=== PATIENT | female | born 1955 | race Caucasian/White ===

== ENCOUNTER 2017-01-30 11:56 | Observation (INO) | payer OTHER ==
[~2017-01-30] VITALS: Ht 160 cm; Wt 53.5 kg
[2017-01-30] MEDS ORDERED: SODIUM CHLORIDE 0.9% 1,000 ML IVB ONE (14:02)
[2017-01-30] MEDS ORDERED: MORPHINE SULF INJ 2 MG/ML SYRINGE 1ML IV ONE (15:30)
[2017-01-30] MEDS ORDERED: ONDANSETRON HCL 4 MG/2 ML VIAL IV ONE (15:30)
[2017-01-30 15:58] LABS: Basophils # (auto) 0 uL; Basophils % (auto) 0.1 % (0.0-2.0); Eosinophils # (auto) 0.1 uL; Eosinophils % (auto) 0.7 % (0.0-7.0); Hematocrit 33.3 % (36.0-46.0); Hemoglobin 10.8 g/dL (12.2-16.2); Lymphocytes # (auto) 2.7 uL; Lymphocytes % (auto) 22.9 % (10.0-50.0); Mean Corpuscular Hemoglobin 33.3 pg (28.0-32.0); Mean Corpuscular Hgb Conc. 32.5 g/dL (32.0-36.0); Mean Corpuscular Volume 102.4 fL (80.0-100.0); Mean Platelet Volume 8.4 fL (6.9-10.8); Monocytes # (auto) 1.3 uL; Monocytes % (auto) 10.6 % (0.0-12.0); Neutrophils # (auto) 7.8 uL; Neutrophils % (auto) 65.7 % (37.0-80.0); Platelet Count (auto) 250 10^3/uL (140-450); White Blood Cell 11.9 10^3/uL (4.4-10.8)
[2017-01-30 16:01] LABS: Red Cell Distribution Width 27.3 % (11.8-14.3)
[2017-01-30 16:16] LABS: Albumin 3.1 g/dL (3.4-5.0); BUN/Creatinine Ratio 30.4; Bilirubin, Total 0.4 mg/dL (0.2-1.0); Calcium 8.3 mg/dL (8.5-10.1); Potassium 3.4 mmol/L (3.5-5.1); Total Protein 6.2 g/dL (6.4-8.2)
[2017-01-30 17:02] VITALS: BP 133/88
[2017-01-30 17:05] LABS: Urine Bilirubin Negative (Negative); Urine Blood 1+ /uL (Negative); Urine Color Yellow (Yellow); Urine Glucose Normal (Normal); Urine Hyaline Cast MOD /lpf (0 - 2); Urine Ketone Negative (Negative); Urine Mucus FEW (None Seen); Urine Nitrite POSITIVE (Negative); Urine RBC 4 /hpf (0 - 4); Urine Squamous Epithelial Cell FEW /hpf (<5); Urine Urobilinogen Normal (Negative)
[2017-01-30] MEDS ORDERED: HYDROcodone-ACET 5/325MG TAB PO PRN (17:15)
[2017-01-30] MEDS ORDERED: TEMAZEPAM 15 MG CAP PO PRN (17:15)
[2017-01-30] MEDS ORDERED: cefTRIAXone 1GM/50ML D5W 50 ML IV ONE (17:15)
[2017-01-30] MEDS ORDERED: MORPHINE SULF INJ 2 MG/ML SYRINGE 1ML IV PRN ×2 (17:15)
[2017-01-30] MEDS ORDERED: LORazepam 0.5 MG TAB PO PRN (17:15)
[2017-01-30] MEDS ORDERED: FAMOTIDINE (10MG/ML) 2ML VL IV SCH (17:15)
[2017-01-30] MEDS ORDERED: PROMETHAZINE HCL 25 MG/ML 1ML IV PRN (17:15)
[2017-01-30] MEDS ORDERED: NITROGLYCERIN 0.4 MG SL TAB SL PRN (17:15)
[2017-01-30] MEDS ORDERED: SOD CHL 0.9%/ KCL 20MEQ 1,000 ML IV SCH (17:15)
[2017-01-30] MEDS ORDERED: ACETAMINOPHEN 500 MG TAB PO PRN (17:15)
[2017-01-30 17:50] LABS: Magnesium 2.2 mg/dL (1.6-2.6)
[2017-01-30] MEDS ORDERED: metroNIDAZOLE 500MG/100ML 100 ML IV SCH (18:00)
[2017-01-30 18:38] LABS: Anisocytosis Moderate; Platelet Estimate Adequate
[2017-01-30 18:39] LABS: Macrocytosis Slight; Tear Drop Cells FEW
[2017-01-31 00:22] LABS: INR 1.05 (0.9-1.15); Partial Thromboplastin Time 23.9 sec (22.64-33.71); Prothrombin Time 11.4 sec (9.37-12.3)
[2017-01-31] MEDS ORDERED: cefTRIAXone 1GM/50ML D5W 50 ML IV SCH (09:00)
[2017-01-31] MEDS ORDERED: ENOXAPARIN SOD 40 MG/0.4 ML SYRINGE SC SCH (10:00)
== END 2017-01-30 18:45 | disposition home or self-care (01) | DRG 251 ==
LOC: ER 11:56 → UNDOADMIN 11:57 → TELE 11:57 → OVERFLOW 14:05 → ER 18:30
PROVIDERS: ADMIT Family Medicine; ATTEND Family Medicine
DX: R10.84 Generalized abdominal pain (principal); C78.7 Secondary malignant neoplasm of liver and intrahepatic bile duct; C18.9 Malignant neoplasm of colon, unspecified; C78.6 Secondary malignant neoplasm of retroperitoneum and peritoneum
CPT/HCPCS: 36415; 71010; 74176; 80053; 81001; 82150; 82378; 83690; 83735; 85025; 85610; 85730; 96361; 96374; 96375; 99285; G0378; J2270; J2405

== ENCOUNTER 2017-03-14 21:04 | Inpatient (IN) | payer OTHER ==
[~2017-03-14] VITALS: Ht 160 cm; Wt 52.5 kg
[2017-03-14] MEDS ORDERED: SODIUM CHLORIDE 0.9% 500 ML IVB ONE (21:21)
[2017-03-14] MEDS ORDERED: PANTOPRAZOLE 40 MG/10 ML VIAL IV STA (21:21)
[2017-03-14] MEDS ORDERED: HYDROmorphone HCL 2 MG/ML VL IV ONE (21:30)
[2017-03-14] MEDS ORDERED: ONDANSETRON HCL 4 MG/2 ML VIAL IV ONE (21:30)
[2017-03-14 22:05] LABS: Albumin 2.6 g/dL (3.4-5.0); Magnesium 3.1 mg/dL (1.6-2.6); Potassium 3.9 mmol/L (3.5-5.1)
[2017-03-14 22:07] LABS: BUN/Creatinine Ratio 20.1
[2017-03-14 22:08] LABS: Total Protein 6.6 g/dL (6.4-8.2)
[2017-03-14 22:45] LABS: Basophils # (auto) 0 uL; Eosinophils # (auto) 0 uL; Hemoglobin 10.5 g/dL (12.2-16.2); Lymphocytes # (auto) 0.3 uL; Monocytes # (auto) 0.2 uL; Monocytes % (auto) 10.1 % (0.0-12.0); Neutrophils # (auto) 1.4 uL
[2017-03-14 22:49] LABS: Basophils % (auto) 0.6 % (0.0-2.0); Eosinophils % (auto) 1.2 % (0.0-7.0); Hematocrit 33.7 % (36.0-46.0); Lymphocytes % (auto) 15.3 % (10.0-50.0); Mean Corpuscular Hemoglobin 28.6 pg (28.0-32.0); Mean Corpuscular Hgb Conc. 31.2 g/dL (32.0-36.0); Mean Corpuscular Volume 91.8 fL (80.0-100.0); Mean Platelet Volume 8.2 fL (6.9-10.8); Neutrophils % (auto) 72.8 % (37.0-80.0); Nucleated Red Blood Cells % 1.3 %; Platelet Count (auto) 481 10^3/uL (140-450)
[2017-03-14 22:51] LABS: INR 1.25 (0.9-1.15); Partial Thromboplastin Time 35.8 sec (22.64-33.71); Prothrombin Time 13.7 sec (9.37-12.3)
[2017-03-14 23:06] LABS: Red Cell Distribution Width 25.1 % (11.8-14.3)
[2017-03-14 23:27] LABS: Platelet Estimate Increased
[2017-03-14 23:28] LABS: Anisocytosis Moderate
[2017-03-14 23:29] LABS: Ovalocytes FEW
[2017-03-14] MEDS ORDERED: SODIUM CHLORIDE 0.9% 1,000 ML IV ONE (23:45)
[2017-03-15] MEDS ORDERED: HYDROmorphone HCL 2 MG/ML VL IV ONE (04:45)
[2017-03-15] MEDS ORDERED: SODIUM CHLORIDE 0.9% 1,000 ML IV ONE ×2 (04:45→22:15)
[2017-03-15] MEDS ORDERED: HYDROcodone-ACET 5/325MG TAB PO PRN (05:45)
[2017-03-15] MEDS ORDERED: MORPHINE SULF INJ 2 MG/ML SYRINGE 1ML IV PRN (05:45)
[2017-03-15] MEDS ORDERED: TEMAZEPAM 15 MG CAP PO PRN (05:45)
[2017-03-15] MEDS ORDERED: ACETAMINOPHEN 325 MG TAB PO PRN (05:45)
[2017-03-15] MEDS ORDERED: NITROGLYCERIN 0.4 MG SL TAB SL PRN (05:45)
[2017-03-15] MEDS ORDERED: ONDANSETRON HCL 4 MG/2 ML VIAL IV PRN (05:45)
[2017-03-15] MEDS: SODIUM CHLORIDE 0.9% 1,000 ML IV SCH ×3 (08:00→12:00)
[2017-03-15] MEDS: PANTOPRAZOLE 40 MG/10 ML VIAL IV SCH (10:10)
[2017-03-15] MEDS: HYDROmorphone HCL 2 MG/ML VL IV PRN ×2 (10:11→14:20)
[2017-03-15 10:46] VITALS: BP 81/53
[2017-03-15] MEDS: metroNIDAZOLE 500 MG TAB PO SCH ×2 (12:26→17:35)
[2017-03-15 15:38] VITALS: BP 82/51
[2017-03-15 17:16] VITALS: BP 82/54
[2017-03-15 22:00] VITALS: BP 75/43
[2017-03-16] MEDS: SODIUM CHLORIDE 0.9% 1,000 ML IV SCH ×2 (04:36→08:54)
[2017-03-16 05:00] VITALS: BP 71/45
[2017-03-16 05:23] LABS: Basophils # (auto) 0 uL; Eosinophils # (auto) 0 uL; Hemoglobin 9.4 g/dL (12.2-16.2); Lymphocytes # (auto) 0.2 uL; Monocytes # (auto) 0.1 uL
[2017-03-16 05:27] LABS: Eosinophils % (auto) 4.3 % (0.0-7.0); Hematocrit 30.1 % (36.0-46.0); Lymphocytes % (auto) 38.4 % (10.0-50.0); Mean Corpuscular Hemoglobin 29.2 pg (28.0-32.0); Mean Corpuscular Hgb Conc. 31.3 g/dL (32.0-36.0); Mean Corpuscular Volume 93.2 fL (80.0-100.0); Mean Platelet Volume 8.5 fL (6.9-10.8); Neutrophils # (auto) 0.2 uL; Platelet Count (auto) 157 10^3/uL (140-450)
[2017-03-16 05:48] LABS: BUN/Creatinine Ratio 24.9; Calcium 6.1 mg/dL (8.5-10.1); Potassium 4.5 mmol/L (3.5-5.1)
[2017-03-16] MEDS: metroNIDAZOLE 500 MG TAB PO SCH ×3 (06:00→11:46)
[2017-03-16] MEDS ORDERED: DEXTROSE 50% SYRINGE 50 ML IV ONE ×2 (06:04→06:05)
[2017-03-16 06:23] LABS: Monocytes % (auto) 18.3 % (0.0-12.0); Nucleated Red Blood Cells % 3.8 %; Red Cell Distribution Width 25.5 % (11.8-14.3); White Blood Cell 0.6 10^3/uL (4.4-10.8)
[2017-03-16 09:00] VITALS: BP 64/34
[2017-03-16] MEDS: PANTOPRAZOLE 40 MG/10 ML VIAL IV SCH (10:45)
[2017-03-16] MEDS ORDERED: DEXTROSE (50%) 50ML SYRG IV ONE (11:30)
[2017-03-16 13:00] VITALS: BP 60/34
[2017-03-16] MEDS ORDERED: FILGRASTIM 480 MCG INJ VIAL SC ONE (14:30)
[2017-03-16] MEDS ORDERED: D5W/SOD CHLO 0.9% 1,000 ML IV SCH (14:30)
[2017-03-16] MEDS: PIPERACILLIN-TAZOB 2.25GM 50 ML IV SCH ×2 (15:04→21:20)
[2017-03-16 16:40] VITALS: BP 56/30
[2017-03-16] MEDS ORDERED: metroNIDAZOLE 500MG/100ML 100 ML IV SCH (17:00)
[2017-03-16 17:06] LABS: Urine Bilirubin Negative (Negative); Urine Blood 2+ /uL (Negative); Urine Color Brown (Yellow); Urine Glucose Normal (Normal); Urine Ketone Negative (Negative); Urine Mucus FEW (None Seen); Urine Nitrite Negative (Negative); Urine RBC 19 /hpf (0 - 4); Urine Squamous Epithelial Cell MOD /hpf (<5); Urine Urobilinogen Normal (Negative); Urine pH 5.5 (5.0-8.0)
[2017-03-16] MEDS ORDERED: BOOST PLUS 8 ounce PO SCH (18:00)
[2017-03-16] MEDS: HYDROmorphone HCL 2 MG/ML VL IV PRN (18:05)
[2017-03-16] MEDS ORDERED: HYDROmorphone HCL 2 MG/ML VL IV PRN (19:00)
[2017-03-16 22:00] VITALS: BP 39/27
[2017-03-17] MEDS ORDERED: FILGRASTIM 480 MCG INJ VIAL SC SCH (10:00)
== END 2017-03-17 05:35 | disposition expired | DRG 720 ==
LOC: EDBD 21:04 → ER 21:07 → TELE 21:08 → TELE-WESTW 03-15 09:23
PROVIDERS: ADMIT Nurse Practitioner; ATTEND Internal Medicine
DX: A41.9 Sepsis, unspecified organism (principal); N17.0 Acute kidney failure with tubular necrosis; R65.21 Severe sepsis with septic shock; D61.810 Antineoplastic chemotherapy induced pancytopenia; E44.0 Moderate protein-calorie malnutrition; C18.9 Malignant neoplasm of colon, unspecified; D64.9 Anemia, unspecified; T45.1X5A Adverse effect of antineoplastic and immunosuppressive drugs, initial encounter; Z51.5 Encounter for palliative care; Z66 Do not resuscitate; Z85.038 Personal history of other malignant neoplasm of large intestine; Z68.20 Body mass index [BMI] 20.0-20.9, adult; Y92.89 Other specified places as the place of occurrence of the external cause; Z90.710 Acquired absence of both cervix and uterus
CPT/HCPCS: 36415; 80048; 80053; 81001; 82150; 82270; 82962; 83690; 83735; 85025; 85610; 85730; 87086; 87088; 87186; 87493; 93005; 94761; 96361; 96374; 96375; C9113; J1442; J2405; J2543; J3490; J7042